=== PATIENT | male | born 1960 | race Hispanic/Latino ===

== ENCOUNTER 2023-08-17 09:43 | Day surgery (SDC) | payer OTHER ==
[2023-08-17] MEDS ORDERED: NA CHLORIDE 0.9% 1,000 ML ONE (10:11)
[2023-08-17] MEDS ORDERED: SIMETHICONE 40 MG/ 0.6 ML ONE (10:53)
[2023-08-17] MEDS ORDERED: propofoL 200 MG/20 ML VIAL IV ONE (11:00)
[2023-08-17] MEDS ORDERED: LIDOCAINE 1% MPF 5 ML VIAL ONE (11:00)
[2023-08-17 12:08] VITALS: TEMP 97.6
--- NOTE | 2023-08-17 12:19 | EKG ---
Test Date: 2023-08-17 Test Time: 09:13:33 [employer]acle [employer]: [place] MEASUREMENT RESULTS: Intervals: Rate: 56 VT: 140 QRSD: 98 QT: 406 QTc: 391 [place]: P: 28 VT: 140 QRS: 42 T: 16 INTERPRETIVE STATEMENTS: Sinus bradycardia Otherwise normal ECG No previous ECG available for comparison Electronically Signed On 08-17-23 12:18:20 OFFICE RECEPTIONIST by Mayo Christie
[2023-08-17 12:25] VITALS: BP 133/772; O2SAT 99
== END 2023-08-17 12:26 | disposition home or self-care (01) ==
LOC: OR 09:43
PROVIDERS: ATTEND Surgery
PROC: 0DBN8ZX Excision of Sigmoid Colon, Via Natural or Artificial Opening Endoscopic, Diagnostic (ICD-10-PCS; 2023-08-17)
PROC: 0DBP8ZX Excision of Rectum, Via Natural or Artificial Opening Endoscopic, Diagnostic (ICD-10-PCS; 2023-08-17)
PROC: 0DBM8ZX Excision of Descending Colon, Via Natural or Artificial Opening Endoscopic, Diagnostic (ICD-10-PCS; principal; 2023-08-17 11:15)
DX: R19.5 Other fecal abnormalities (principal); K63.5 Polyp of colon; K57.30 Diverticulosis of large intestine without perforation or abscess without bleeding; K64.8 Other hemorrhoids
CPT/HCPCS: 93005; 80048; 36415; 82947; 88305; 45380; J2704; J2001; J7030